=== PATIENT | female | born 1940 | race Caucasian/White ===

== ENCOUNTER 2020-01-09 19:40 | Emergency (ER) | payer MEDICARE ==
--- NOTE | 2020-01-09 20:39 | ED Physician Documentation ---
History of Present Illness - Stated complaint Stated Complaint: LIGHTHEADED, HBP - Chief complaint Chief Complaint: General - History obtained from History obtained from: Patient - History of Present Illness Timing: Yesterday Pain level max: 0 Pain level now: 0 Improved by: no ameliorating factors Worsened by: no exacerbating factors - Additonal information Additional information: c/o episodic lightheadedness since yesterday. Patient is [place]. She says she usually has low blood pressure. She bought a blood pressure cuff yesterday and has repeatedly had readings since yesterday of 170s/90s with heart rate 70s. Earlier today she checked her blood pressure using a friend's BP cuff with similar readings. 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 HEENT: None Psych: None Musculoskeletal: Osteoarthritis Derm: None Other Past Medical History: POTS, - Past Surgical History Past Surgical History: Yes /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 - Allergies Allergies/Adverse Reactions: Allergies Allergy/AdvReac Type Severity Reaction Status Date / Time Penicillins Allergy Itching Verified 01/09/20 19:49 prochlorperazine Allergy Anaphylaxis Verified 01/09/20 19:49 [From Compazine] - Social History Does the pt smoke?: No Smoking Status: Never smoker Does the pt drink ETOH?: Yes ETOH Use: Wine Does the pt have substance abuse?: No - Immunizations Immunizations are current?: No - POLST Patient has POLST: No PD ED PE NORMAL - Vitals Vital signs reviewed: Yes - General General: Alert and oriented X 3, No acute distress, Well developed/nourished - HEENT HEENT: PERRL, EOMI - Cardiac Cardiac: RRR, No gallop, No rub - Respiratory Respiratory: No respiratory distress, Clear bilaterally - Abdomen Abdomen: Soft, Non tender - Derm Derm: Normal color, Warm and dry - Extremities Extremities: No edema PD ED PE EXPANDED - Cardiac Cardiac: Murmur Present (2/6 SUSAN cardiac base, greatest at left 2nd ICS) Results - Vitals Vitals: Vital Signs - 24 hr 01/09/20 01/09/20 19:49 22:45 Temperature 36.6 C Heart Rate 77 72 Respiratory 18 14 Rate Blood Pressure 150/74 H 126/77 O2 Saturation 97 99 Oxygen O2 Source Room air - Labs Labs: Laboratory Tests 01/09/20 01/09/20 21:20 21:20 WBC 8.9 RBC 4.70 Hgb 13.8 Hct 42.4 MCV 90.2 MCH 29.4 MCHC 32.5 RDW 12.8 Plt Count 210 MPV 9.3 Neut # (Auto) 6.4 Lymph # (Auto) 1.3 L [place] # (Auto) 0.8 Eos # (Auto) 0.2 Baso # (Auto) 0.0 Absolute Nucleated RBC 0.00 Nucleated RBC % 0.0 Sodium 139 Potassium 3.8 Chloride 100 L Carbon Dioxide 29 Anion Gap 10.0 BUN 17 Creatinine 0.8 Estimated GFR (MDRD) 69 L Glucose 104 H Calcium 9.9 Total Bilirubin 1.0 AST 18 ALT 16 Alkaline Phosphatase 65 Total Protein 7.7 Albumin 4.6 Globulin 3.1 Albumin/Globulin Ratio 1.5 Lipase 44 - Rads (name of study) CXR Radiology: Prelim report reviewed, See rad report PD MEDICAL DECISION MAKING - ED course Complexity details: reviewed results, re-evaluated patient, considered differential, d/w patient ED course: reassuring test results (blood tests, CXR). her blood pressure readings were mildly elevated during ED stay but symptoms are limited to episodic lightheadedness and she says she has long history of low blood pressure readings, and thus I did not order nor prescribe antihypertensives. I instructed patient to return if worse but to follow up with her primary care provider even if asymptomatic Departure - Departure Disposition: 01 Home, Self Care Clinical Impression: Hypertension Condition: Good Instructions: ED Hypertension Poss Comments: Follow up with your primary care provider; call to arrange for next available appointment Discharge Date/Time: 01/09/20 22:54
[2020-01-09 21:27] LABS: BASOPHILS % (AUTO) 0.5 %; EOSINOPHILS # (AUTO) 0.2 10^3/uL (0.0-0.7); EOSINOPHILS % (AUTO) 2.7 %; HGB - HEMOGLOBIN 13.8 g/dL (12.0-16.0); LYMPHOCYTES # (AUTO) 1.3 10^3/uL (1.5-3.5); LYMPHOCYTES % (AUTO) 14.9 %; MEAN CORPUSCULAR HEMOGLOBIN 29.4 pg (27.0-31.0); MEAN CORPUSCULAR HGB CONC 32.5 g/dL (32.0-36.0); MEAN CORPUSCULAR VOLUME 90.2 fL (81.0-99.0); MEAN PLATELET VOLUME 9.3 fL (7.9-10.8); MONOCYTES # (AUTO) 0.8 10^3/uL (0.0-1.0); MONOCYTES % (AUTO) 9.3 %; NEUTROPHILS # (AUTO) 6.4 10^3/uL (1.5-6.6); NEUTROPHILS % (AUTO) 72.1 %; PLT - PLATELET COUNT 210 10^3/uL (130-450); RED CELL DISTRIBUTION WIDTH 12.8 % (12.0-15.0); WHITE BLOOD COUNT 8.9 x10^3/uL (4.8-10.8)
[2020-01-09 21:40] LABS: ALBUMIN 4.6 g/dL (3.2-5.5); ALBUMIN/GLOBULIN RATIO 1.5 (1.0-2.2); CALCIUM 9.9 mg/dL (8.5-10.3); CREATININE 0.8 mg/dL (0.4-1.0); TOTAL PROTEIN 7.7 g/dL (6.7-8.2)
[2020-01-09 22:46] VITALS: BP 126/77
--- NOTE | 2020-01-10 09:15 | XRAY Report ---
PROCEDURE: Chest 2 View X-Ray INDICATIONS: Lightheadedness, dizziness TECHNIQUE: 2 view(s) of the chest. COMPARISON: None. FINDINGS: Surgical changes and devices: Median sternotomy changes. Lungs and pleura: No pleural effusions or pneumothorax. Lungs are clear. Mediastinum: Mediastinal contours are normal. Heart size is normal. Bones and chest wall: No suspicious bony abnormalities. Soft tissues appear unremarkable. IMPRESSION: No acute cardiopulmonary process demonstrated radiographically. Reviewed by: Geo Fritz MD on 01/10/2020 9:14 AM PDT Approved by: Geo Fritz MD on 01/10/2020 9:14 AM PDT Station ID: [id number]
== END 2020-01-09 22:54 | disposition home or self-care (01) ==
LOC: ED 19:40
DX: I10 Essential (primary) hypertension (principal)
CPT/HCPCS: 36415; 71046; 80053; 83690; 85025; 99282; 99284